=== PATIENT | female | born 1980 | race Two or more races ===

== ENCOUNTER 2022-09-27 11:35 | Emergency (ER) | payer SELFPAY ==
[~2022-09-27] VITALS: Ht 154.9 cm; Wt 50.0 kg
[2022-09-27] MEDS ORDERED: EPINEPHrine HCL 1 MG/10 ML SYRG IV ONE (11:49)
[2022-09-27 12:40] VITALS: BP 0/0
== END 2022-09-27 16:45 ==
LOC: EDBD 11:35 → ER 11:48
DX: I46.9 Cardiac arrest, cause unspecified (principal); Z86.69 Personal history of other diseases of the nervous system and sense organs
CPT/HCPCS: 31500; 92950; 99285; J0171